=== PATIENT | male | born 1995 | race Caucasian/White ===

== ENCOUNTER → 2019-06-16 | Outpatient (CLI) | payer OTHER ==
--- NOTE | 2019-06-16 14:06 | KCIC ---
Examination: MRI left knee without contrast HISTORY: History of left knee pain, strain COMPARISON: None available TECHNIQUE: Multiplanar, multisequence MR imaging of the left knee was performed without contrast. FINDINGS: The anterior cruciate ligament, posterior cruciate ligament appear intact. The medial meniscus, lateral meniscus appear intact. The medial collateral ligament appears intact. There is increased signal identified in the medial patellofemoral ligament at its femoral attachment likely. There is mild increased T2 signal identified in the inferior aspect of the medial retinaculum at its patellar attachment likely secondary to injury/partial tear. The lateral retinaculum appear intact. Moderate knee joint effusion. Lateral patellar tilting is identified with deep fissuring of cartilage identified in the medial patellar facet with small subchondral cystic changes. Minimal trabecular edema identified in the lateral femoral condyle. There is focal cartilage loss identified in the posterior weightbearing portion of the lateral femoral condyle with cartilage loss measuring 2.3 cm in AP dimension. There is oblique linear low T2 signal focus identified in the knee joint just lateral to the lateral femoral condyle, best visualized on series 3 image #12 could be the cartilaginous loose body or fat. Differentiation is difficult on this examination. Mild soft tissue edema identified about the knee joint. IMPRESSION: 1. Increased T2 signal identified in the medial patellar facet and lateral femoral condyle suspicious for transient patellar dislocation with mild lateral patellar tilting. There is increased T2 signal identified at the femoral attachment of the medial patellofemoral ligament could be partial tear. There is mild increased T2 signal identified in the inferior aspect of the medial retinaculum at its patellar attachment could be secondary to injury or tear. Majority of the fibers appear intact. 2. Deep fissuring of cartilage identified in the medial patella. There is focal cartilage loss identified in the posterior weightbearing portion of the lateral femoral condyle with cartilage loss measuring 2.3 cm in AP dimension. There is oblique linear low T2 signal focus identified in the knee joint just lateral to the lateral femoral condyle, best visualized on series 3 image #12 could be the cartilaginous loose body or fat. Differentiation is difficult on this examination. Electronically signed by: Eduar Iglesias MD (06/16/2019 2:03 PM) [id number]
== END | disposition home or self-care (01) ==
LOC: KCIC MRI 12:14
PROVIDERS: ATTEND Preventive Medicine Occupational Medicine
DX: M25.462 Effusion, left knee (principal)
CPT/HCPCS: 73721